=== PATIENT | male | born 1935 | race Caucasian/White ===

== ENCOUNTER 2023-07-23 13:15 | Emergency (ER) | payer MEDICARE ==
[2023-07-23 13:28] VITALS: BP 195/98; PULSE 88; O2SAT 92
--- NOTE | 2023-07-23 13:31 | ERPHSYRPT ---
- History of Present Illness Time Seen by Provider: 07/23/23 13:25 Source: patient Exam Limitations: no limitations Patient Subjective Stated Complaint: Pt states that he has some meat stuck in his throat Triage Nursing Assessment: Pt brought to the ER by his , hypertensive, denies pain, pt walked into the ER with a stable gait, when pt laid down in the bed he stated that he felt better, gave pt a drink while in semi fowlers position and the water stayed down, after a few minutes the pt sat on the edge of the bed and took another drink and it stayed down, pulses normal, skin n/w/d, no difficulties breathing, doesn't appear to be in any distress Physician History: 87yo m presents by private vehicle for sensation of food bolus. Pt states he was eating ribs roughly 30min [employer] when he felt like he had a piece of meat stuck in his esophagus - he points to his substernal region to be where the pain is. Pt states he has significant hx of gerd, has never had endoscopy. Pt currently denies cp, soa, does report some reflux stating he was unable to swallow liquids while he was having this feeling. Pt states he currently feels like the sensation has resolved, is no longer complaining of discomfort, states he feels back to baseline, is now tolerating water PO. Timing/Duration: today Severity: mild Allergies/Adverse Reactions: Sulfa (Sulfonamide Antibiotics) Allergy (Verified 07/23/23 13:28) Home Medications: Glimepiride [Amaryl] 2 mg PO DAILY 08/31/14 [History] Metformin HCl 500 mg [Glucophage 500 MG] 1,000 mg PO HS 08/31/14 [History] Trandolapril [Mavik] 4 mg PO DAILY 08/31/14 [History] Amlodipine Besylate 5 mg [Norvasc 5 mg] 5 mg PO DAILY 07/23/23 [History] Esomeprazole Magnesium [Nexium] 20 mg PO DAILY 07/23/23 [History] Pravastatin Sodium 20 mg PO DAILY 07/23/23 [History] Hx Tetanus, Diphtheria Vaccination/Date Given: No Hx Influenza Vaccination/Date Given: No Hx Pneumococcal Vaccination/Date Given: No Travel Risk - International Travel Have you traveled outside of the country in past 3 weeks: No - Emerging Infectious Disease Are you exhibiting symptoms associated with any current EIDs: No - Past Medical History Pertinent Past Medical History: Yes Endocrine Medical History: Diabetes Type II - Past Surgical History Past Surgical History: Yes Gastrointestinal: Hernia Repair Other Surgical History: sinus surgery - Social History Smoking Status: Never smoker Exposure to second hand smoke: Yes Drug Use: none Patient Lives Alone: No - Nursing Vital Signs Nursing Vital Signs: Initial Vital Signs Pulse Rate 88 07/23/23 13:21 Blood Pressure 195/98 07/23/23 13:21 O2 Sat by Pulse Oximetry 92 L 07/23/23 13:21 Pain Scale Pain Intensity 0 - Physical Exam SpO2: 92 Ordered Tests: Active Orders 24 hr Category Date Time Status CHEST 2 VIEWS (PA AND LAT) Stat Exams 07/23/23 13:29 Completed NECK SOFT TISSUE Stat Exams 07/23/23 13:30 Completed - Progress Progress: improved Progress Note: 07/23/23 15:26 CXR negative for acute abnormality - no sign of food bolus XR soft tissue neck negative for acute abnormality - no sign of food bolus pt completely asymptomatic on re-examination, has been tolerating drinking water w/o difficulties, no reflux, no vomiting, no sob plan for dc home w/ close PCP f/u Dr Christopher for further workup of reflux instructed to eat soft diet and majority liquids for the next few days to avoid repeat incident instructed to be sure to take his omeprazole as prescribed return to ED if: food bolus sensation returns, develop chest pain, unable to tolerate oral intake Medical Desision Making - Diagnostic Testing Diagnostic test were ordered, analyzed, and reviewed by me: Yes Radiological Interpretation: Reviewed by me, Teleradiologist Report - Risk of complications Minimal Risk: Minimal risk of morbidity - Departure Departure Disposition: Home Clinical Impression: Globus sensation Acid reflux Qualifiers: Esophagitis presence: esophagitis presence not specified Qualified Code(s): K21.9 - Gastro-esophageal reflux disease without esophagitis Condition: Stable Critical Care Time: No Referrals: HARVEY CHRISTOPHER MD [Primary Care Provider] - Follow up/PCP as directed Additional Instructions: plan for dc home w/ close PCP f/u Dr Christopher for further workup of reflux instructed to eat soft diet and majority liquids for the next few days to avoid repeat incident instructed to be sure to take his omeprazole as prescribed return to ED if: food bolus sensation returns, develop chest pain, unable to tolerate oral intake
--- NOTE | 2023-07-23 14:44 | XRAY ---
CLINICAL HISTORY: food bolus COMPARISON: None TECHNIQUE: X-ray for the soft tissues of the neck was performed in 2 views: AP and lateral views. FINDINGS: Soft tissue structures of the neck appear unremarkable. Preserved airway, no abnormal density detected. Loss of cervical lordotic curvature. No fracture is seen. The vertebral alignment is maintained with no spondylolisthesis visualized. There is no abnormal mass. The paraspinal area and soft tissue appear within normal limits. Disc heights are narrowed at C4-C5 and C5-C6 discs. Small anterior osteophytes are noted. No subluxation is seen. Dens appear unremarkable. IMPRESSION: 1. Unremarkable soft tissue of the neck with normal airway. 2. Mild cervical spondylosis. DISCLAIMER:A subtle bone abnormality or fracture may not be readily apparent on x-rays, thus clinical correlation and further imaging including follow up CT, MRI, or follow up x-rays are advised as needed. Electronically Signed by: Og Lindquist MD. (07/23/2023 14:39:27 EDT)
--- NOTE | 2023-07-23 14:54 | XRAY ---
CLINICAL HISTORY: food bolus COMPARISON: None. TECHNIQUE: X-ray of the chest showing 2 views: PA and lateral views. FINDINGS: Radiographic examination of the chest demonstrates clear lungs. Normal configuration of the mediastinum. The phill are normal in size and position. Prominent aortic arch with unfolded aorta. The cardiac size is normal. The bony thorax is unremarkable. The costophrenic and cardiophrenic angles are clear. Thoracic spondylosis. IMPRESSION: Unremarkable x-ray of the chest. Electronically Signed by: Og Lindquist MD. (07/23/2023 14:50:25 EDT)
== END 2023-07-23 15:39 | disposition home or self-care (01) ==
LOC: ED 13:15
DX: R09.A2 Foreign body sensation, throat (principal); K21.9 Gastro-esophageal reflux disease without esophagitis; E11.9 Type 2 diabetes mellitus without complications; Z79.84 Long term (current) use of oral hypoglycemic drugs; Z79.899 Other long term (current) drug therapy
CPT/HCPCS: 70360; 71046; 99282